=== PATIENT | female | born 1980 | race African-American/Black ===

== ENCOUNTER 2017-01-26 10:10 | Emergency (ER) | payer OTHER ==
[~2017-01-26] VITALS: Ht 170.2 cm; Wt 80.0 kg
[2017-01-26] MEDS ORDERED: ACETAMINOPHEN 325MG TABLET PO ONE (11:15)
[2017-01-26 12:09] LABS: HEMATOCRIT. 41.1 % (36.0-48.0); HEMOGLOBIN. 13.3 g/dL (12.0-16.0); MEAN CORPUSCULAR HEMOGLOBIN 27.6 pg (28.0-32.0); MEAN CORPUSCULAR HGB CONC 32.3 g/dL (31.0-37.0); MEAN CORPUSCULAR VOLUME 85.4 fL (81.0-99.0); PLATELET 349 x1000/uL (130-400); RED BLOOD CELL COUNT 4.81 mill/uL (4.2-5.4); RED CELL DISTRIBUTION WIDTH 14.2 % (11.6-14.6); WHITE BLOOD COUNT 8.9 x1000/uL (4.5-11.0)
[2017-01-26 12:57] LABS: PLATELET ESTIMATE NORMAL
[2017-01-26 17:50] VITALS: BP 110/72
== END 2017-01-26 18:53 | disposition home or self-care (01) ==
LOC: ER 10:20
DX: J02.9 Acute pharyngitis, unspecified (principal)
CPT/HCPCS: 36415; 84702; 85007; 85027; 86850; 86900; 86901; 87070; 87430; 99284; Z7610